=== PATIENT | female | born 1955 | race Caucasian/White ===

== ENCOUNTER 2017-06-25 08:51 | Emergency (ER) | payer SELFPAY, OTHER | END 2017-06-25 12:49 | disposition left against medical advice (07) | LOC: FTE 08:51 | DX: Z53.21 Procedure and treatment not carried out due to patient leaving prior to being seen by health care provider (principal) ==

== ENCOUNTER 2018-06-29 21:19 | Emergency (ER) | payer OTHER | END 2018-06-29 22:34 | disposition home or self-care (01) | LOC: FTE 21:19 | DX: N61.0 Mastitis without abscess (principal); F17.210 Nicotine dependence, cigarettes, uncomplicated; Z86.73 Personal history of transient ischemic attack (TIA), and cerebral infarction without residual deficits; Z91.010 Allergy to peanuts | CPT/HCPCS: 99283; Z7502 ==